=== PATIENT | male | born 1955 | race Caucasian/White ===

== ENCOUNTER 2017-05-02 22:22 | Emergency (ER) | payer MEDICARE, OTHER ==
[~2017-05-02] VITALS: Ht 172.7 cm; Wt 84.6 kg
[~2017-05-02 22:22] MED LIST: FLO0.4C PO; IBUP-1984 PO
[2017-05-02 22:58] VITALS: BP 132/62
== END 2017-05-02 23:02 | disposition home or self-care (01) ==
LOC: ER 22:25
DX: J20.9 Acute bronchitis, unspecified (principal); J06.9 Acute upper respiratory infection, unspecified; I10 Essential (primary) hypertension; Z98.890 Other specified postprocedural states; Z79.899 Other long term (current) drug therapy
CPT/HCPCS: 99281

== ENCOUNTER 2020-09-26 01:14 | Emergency (ER) | payer MEDICARE ==
[~2020-09-26] VITALS: Ht 172.7 cm; Wt 77.3 kg
[2020-09-26] MEDS ORDERED: ketorolac tromethamine 15mg/ml inj. IM ONE (02:25)
[2020-09-26] MEDS ORDERED: diazepam inj 5 MG/ML inj. IM ONE (02:25)
[2020-09-26 04:17] VITALS: BP 141/79
== END 2020-09-26 04:20 | disposition home or self-care (01) ==
LOC: ER 01:15
DX: M25.551 Pain in right hip (principal); I10 Essential (primary) hypertension; Z98.890 Other specified postprocedural states; Z79.899 Other long term (current) drug therapy
CPT/HCPCS: 72192; 73502; 96372; 99284; J1885; J3360

== ENCOUNTER 2021-09-23 17:28 | Emergency (ER) | payer MEDICARE ==
[~2021-09-23] VITALS: Ht 172.7 cm; Wt 75.0 kg
[2021-09-23 17:34] VITALS: BP 182/104
[2021-09-23] MEDS ORDERED: TETanus/Pertussis (Acell)/Diphther VAC/PF (Tdap-Adult) 0.5ml syringe IMVAC ONE (17:45)
[2021-09-23] MEDS ORDERED: bacitracin 15gm ointment TP ONE (17:45)
[2021-09-23] MEDS ORDERED: LIDOcaine 1% W/epiNEPHrine 1:200,000 10ml vial IJ ONE (17:45)
[2021-09-23] MEDS ORDERED: amox tr/potassium clavulanate 875/125mg TAB PO ONE (17:55)
[2021-09-23] MEDS ORDERED: LIDOcaine 1% W/epiNEPHrine 1:100,000 20ml vial IJ ONE (18:05)
[2021-09-23] MEDS ORDERED: AMOX-117 PO (19:32)
== END 2021-09-23 19:46 | disposition home or self-care (01) ==
LOC: ER 17:29
DX: S01.512A Laceration without foreign body of oral cavity, initial encounter (principal); S01.411A Laceration without foreign body of right cheek and temporomandibular area, initial encounter; W54.0XXA Bitten by dog, initial encounter; Y93.89 Activity, other specified; Y92.89 Other specified places as the place of occurrence of the external cause; Y99.8 Other external cause status
CPT/HCPCS: 12013; 70100; 90471; 90715; 99283

== ENCOUNTER 2023-09-28 09:53 | Emergency (ER) | payer MEDICAID, MEDICARE ==
[~2023-09-28] VITALS: Ht 172.7 cm; Wt 69.1 kg
[2023-09-28] MEDS: LIDOcaine 1% W/epiNEPHrine 1:100,000 20ml vial IJ ONE (10:30)
[2023-09-28] MEDS: LIDOcaine/epinephrine/tetracaine TOPICAL sol 3 ML syringe TOP ONE (10:34)
[2023-09-28] MEDS ORDERED: AMOX-101 PO (12:13)
[2023-09-28 12:37] VITALS: BP 162/98; PULSE 84; RESP 16; TEMP 98; O2SAT 97
== END 2023-09-28 12:39 | disposition home or self-care (01) ==
LOC: ER 09:53
DX: S01.511A Laceration without foreign body of lip, initial encounter (principal); S80.211A Abrasion, right knee, initial encounter; S80.212A Abrasion, left knee, initial encounter; I10 Essential (primary) hypertension; Z79.1 Long term (current) use of non-steroidal anti-inflammatories (NSAID); Z79.2 Long term (current) use of antibiotics; Z79.899 Other long term (current) drug therapy; W18.40XA Slipping, tripping and stumbling without falling, unspecified, initial encounter; Y93.89 Activity, other specified; Y92.89 Other specified places as the place of occurrence of the external cause; Y99.8 Other external cause status
CPT/HCPCS: 12013; 99284; A6402; J3490; J7030; Z7610; A6449

== ENCOUNTER 2023-10-05 20:12 | Emergency (ER) | payer OTHER, MEDICARE ==
[~2023-10-05] VITALS: Ht 172.7 cm; Wt 63.0 kg
[~2023-10-05 20:12] MED LIST changes: +AMOX-101 PO
[2023-10-05 20:39] VITALS: BP 126/72; PULSE 69; RESP 17; O2SAT 95
[2023-10-05 21:03] VITALS: TEMP 98.8
== END 2023-10-05 21:05 | disposition home or self-care (01) ==
LOC: ER 20:13
DX: S01.511D Laceration without foreign body of lip, subsequent encounter (principal); S01.81XD Laceration without foreign body of other part of head, subsequent encounter; I10 Essential (primary) hypertension; X58.XXXD Exposure to other specified factors, subsequent encounter; Z79.2 Long term (current) use of antibiotics; Z79.1 Long term (current) use of non-steroidal anti-inflammatories (NSAID); Z79.899 Other long term (current) drug therapy
CPT/HCPCS: 99281

== ENCOUNTER 2023-10-11 16:22 | Emergency (ER) | payer MEDICARE, OTHER ==
[~2023-10-11] VITALS: Ht 172.7 cm; Wt 74.3 kg
[~2023-10-11 16:22] MED LIST changes: -AMOX-101 PO
[2023-10-11 16:24] VITALS: BP 131/71; PULSE 68; O2SAT 96
[2023-10-11 17:08] VITALS: RESP 16; TEMP 98.5
== END 2023-10-11 17:09 | disposition home or self-care (01) ==
LOC: ER 16:22
DX: S01.511D Laceration without foreign body of lip, subsequent encounter (principal); I10 Essential (primary) hypertension; X58.XXXD Exposure to other specified factors, subsequent encounter; Z79.1 Long term (current) use of non-steroidal anti-inflammatories (NSAID); Z79.899 Other long term (current) drug therapy; Z98.890 Other specified postprocedural states
CPT/HCPCS: 99281

== ENCOUNTER 2023-10-21 12:50 | Emergency (ER) | payer OTHER ==
[~2023-10-21] VITALS: Ht 167.6 cm; Wt 70.0 kg
[2023-10-21 13:36] VITALS: BP 134/78; PULSE 78; RESP 18; TEMP 98.5; O2SAT 99
== END 2023-10-21 13:38 | disposition home or self-care (01) ==
LOC: ER 12:51
DX: S01.511D Laceration without foreign body of lip, subsequent encounter (principal); I10 Essential (primary) hypertension; Z79.1 Long term (current) use of non-steroidal anti-inflammatories (NSAID); Z79.899 Other long term (current) drug therapy; X58.XXXD Exposure to other specified factors, subsequent encounter
CPT/HCPCS: 99281